=== PATIENT | female | born 1985 | race Caucasian/White ===

== ENCOUNTER 2018-08-09 04:44 | Inpatient (IN) | payer OTHER ==
[~2018-08-09] VITALS: Ht 162.6 cm; Wt 99.3 kg
[2018-08-09] MEDS ORDERED: RINGERS SOLUTION,LACTATED 1,000 ML IV ONE (04:50)
[2018-08-09] MEDS ORDERED: OXYTOCIN 30 UNITS/LACT RINGERS 500 ML IV ONE ×3 (04:50→10:22)
[2018-08-09] MEDS ORDERED: AMPICILLIN SODIUM 2 GM/NS 100 ML IV ONE (05:00)
[2018-08-09] MEDS ORDERED: LIDOCAINE/PF 1% 30 ML VIAL INJ PRN ×2 (05:00→10:30)
[2018-08-09] MEDS ORDERED: METOCLOPRAMIDE HCL 5 MG/ML 2 ML VIAL IVP PRN (05:00)
[2018-08-09] MEDS ORDERED: CITRIC ACID/SODIUM CITRATE 30 ML SOLUTION UDCUP PO PRN (05:00)
[2018-08-09 05:13] LABS: BASOPHILS % (AUTO) 0.2 % (0.0-2.0); EOSINOPHILS % (AUTO) 0.6 % (1.0-6.0); HEMATOCRIT 33.2 % (36-46); LYMPHOCYTES # (AUTO) 2.3 K/uL (1.0-4.8); LYMPHOCYTES % (AUTO) 18.3 % (22.0-44.0); MEAN CORPUSCULAR HEMOGLOBIN 27.4 pg (26.0-34.0); MEAN CORPUSCULAR HGB CONC 33.3 G/dL (31.0-37.0); MEAN CORPUSCULAR VOLUME 82 fL (80-100); MONOCYTES # (AUTO) 0.8 K/uL (0.1-1.0); MONOCYTES % (AUTO) 6.2 % (2.0-9.0); NEUTROPHILS # (AUTO) 9.3 K/uL (1.8-7.7); NEUTROPHILS % (AUTO) 74.7 % (40.0-70.0); PLATELET COUNT (AUTO) 346 K/uL (150-450); RED BLOOD CELL COUNT(AUTO) 4.03 MIL/uL (4.00-5.20); RED CELL DISTRIBUTION WIDTH 13.8 % (11.5-14.5)
[2018-08-09] MEDS ORDERED: ROPIVACAINE HCL/PF 0.2% 100 ML ED ONE (05:19)
[2018-08-09] MEDS ORDERED: LIDOCAINE/PF 2% 5 ML VIAL ONE (05:19)
[2018-08-09] MEDS: RINGERS SOLUTION,LACTATED 1,000 ML IV SCH ×2 (05:34→07:42)
[2018-08-09] MEDS ORDERED: DiphenhydrAMINE HCL 50 MG/ML VIAL IVP PRN (05:45)
[2018-08-09] MEDS ORDERED: NALBUPHINE HCL 10 MG/ML VIAL IVP PRN (05:45)
[2018-08-09] MEDS ORDERED: ROPIVACAINE HCL/PF 0.2% 100 ML ED PRN (05:45)
[2018-08-09] MEDS ORDERED: ONDANSETRON HCL 4 MG/2 ML VIAL IVP PRN (05:45)
[2018-08-09 06:13] VITALS: BP 113/67
[2018-08-09] MEDS ORDERED: PNV11TAB PO (06:53)
[2018-08-09] MEDS ORDERED: AMPICILLIN SODIUM 1 GM/NS 50 ML IV SCH (09:00)
[2018-08-09] MEDS ORDERED: OxyCODONE HCL/ACETAMINOPHEN 5-325 MG TABLET PO PRN ×2 (10:30)
[2018-08-09] MEDS ORDERED: MAGNESIUM HYDROXIDE SUSPENSION 30 ML UDCUP PO PRN (10:30)
[2018-08-09] MEDS ORDERED: LANOLIN 7 GM OINTMENT TP PRN (10:30)
[2018-08-09] MEDS ORDERED: GLYCERIN/WITCH HAZEL LEAF 40 PADS JAR TP PRN (10:30)
[2018-08-09] MEDS ORDERED: BENZOCAINE 20%/MENTHOL 56 GM SPRAY CANISTER TP PRN (10:30)
[2018-08-09] MEDS ORDERED: IBUPROFEN 800 MG TABLET PO PRN (10:30)
[2018-08-10 06:03] LABS: BASOPHILS % (AUTO) 0.4 % (0.0-2.0); HEMATOCRIT 30.1 % (36-46); HEMOGLOBIN 10.1 g/dL (12.0-16.0); LYMPHOCYTES # (AUTO) 1.9 K/uL (1.0-4.8); LYMPHOCYTES % (AUTO) 18.2 % (22.0-44.0); MEAN CORPUSCULAR HEMOGLOBIN 27.8 pg (26.0-34.0); MEAN CORPUSCULAR HGB CONC 33.4 G/dL (31.0-37.0); MEAN CORPUSCULAR VOLUME 83 fL (80-100); MONOCYTES # (AUTO) 0.9 K/uL (0.1-1.0); MONOCYTES % (AUTO) 8.4 % (2.0-9.0); NEUTROPHILS # (AUTO) 7.6 K/uL (1.8-7.7); PLATELET COUNT (AUTO)-OB 308 K/uL (150-450); RED BLOOD CELL COUNT(AUTO) 3.63 MIL/uL (4.00-5.20); RED CELL DISTRIBUTION WIDTH 13.6 % (11.5-14.5)
== END 2018-08-10 10:50 | disposition home or self-care (01) | DRG 807 ==
LOC: 4S 04:48 → OBSVTOIN 04:48
PROVIDERS: ADMIT Obstetrics & Gynecology; ATTEND Obstetrics & Gynecology
PROC: 10E0XZZ Delivery of Products of Conception, External Approach (ICD-10-PCS; principal; 2018-08-09)
PROC: 0HQ9XZZ Repair Perineum Skin, External Approach (ICD-10-PCS; 2018-08-09)
PROC: 3E0R3BZ Introduction of Anesthetic Agent into Spinal Canal, Percutaneous Approach (ICD-10-PCS; 2018-08-09)
PROC: 00HU33Z Insertion of Infusion Device into Spinal Canal, Percutaneous Approach (ICD-10-PCS; 2018-08-09)
DX: O69.81X0 Labor and delivery complicated by cord around neck, without compression, not applicable or unspecified (principal); Z37.0 Single live birth; O70.0 First degree perineal laceration during delivery; Z3A.37 37 weeks gestation of pregnancy
CPT/HCPCS: 86850; 86900; 86901; J2590; J2795; J3490; J7120